=== PATIENT | male | born 1980 | race Caucasian/White ===

== ENCOUNTER 2018-11-09 17:50 | Emergency (ER) | payer BC ==
--- NOTE | 2018-11-09 19:29 | ER ---
Nurse's Notes [facility] Name: Del Barahona Age: 38 yrs Sex: Male : 1980 Arrival Date: 11/09/2018 Time: 17:53 Bed 28 Private MD: Unknown, Unknown Diagnosis: Abrasion, left great toe Presentation: 11/09 18:01 Presenting complaint: Patient states: right great toe injury happened today after sv kicking a speaker. Transition of care: patient was not received from another setting of care. Onset of symptoms was November 09, 2018. Risk Assessment: Do you want to hurt yourself or someone else? Patient reports no desire to harm self or others. Initial Sepsis Screen: Does the patient meet any 2 criteria? No. Patient's initial sepsis screen is negative. Does the patient have a suspected source of infection? No. Patient's initial sepsis screen is negative. Care prior to arrival: None. 18:01 Method Of Arrival: Ambulatory sv 18:01 Acuity: CHARO 3 sv Triage Assessment: 18:01 General: Appears in no apparent distress. uncomfortable, well developed, Behavior is sv calm, cooperative, appropriate for age. Pain: Complains of pain in right first toe Pain currently is 5 out of 10 on a pain scale. Neuro: Level of Consciousness is awake, alert, obeys commands, Oriented to person, place, time, situation, Gait is steady. Respiratory: Respiratory effort is even, unlabored, Respiratory pattern is regular, symmetrical. Historical: - Allergies: 18:01 No Known Allergies; sv - PMHx: 18:01 None; sv - PSHx: 18:01 None; sv - Immunization history:: Adult Immunizations up to date. - Social history:: Smoking status: Patient uses tobacco products, chewing tobacco, Patient uses Patient/guardian denies using alcohol, street drugs, The patient lives alone, with family. - Ebola Screening: : No symptoms or risks identified at this time. - Family history:: not pertinent. Screenin:28 Abuse screen: Denies threats or abuse. Denies injuries from another. Nutritional mg2 screening: No deficits noted. Tuberculosis screening: No symptoms or risk factors identified. Fall Risk None identified. Assessment: 18:28 General: Appears in no apparent distress. comfortable, Behavior is calm, cooperative. mg2 Neuro: Level of Consciousness is awake, alert, obeys commands, Oriented to person, place, time, situation. Cardiovascular: Capillary refill < 3 seconds Patient's skin is warm and dry. Respiratory: Airway is patent Respiratory effort is even, unlabored, Respiratory pattern is regular, symmetrical. GI: No signs and/or symptoms were reported involving the gastrointestinal system. : No signs and/or symptoms were reported regarding the genitourinary system. 19:12 Pain: Complains of pain in right big toe Pain does not radiate. Pain currently is 3 out mg2 of 10 on a pain scale. Quality of pain is described as aching, Pain began gradually, Is intermittent. EENT: No signs and/or symptoms were reported regarding the EENT system. Derm: Skin is intact, is healthy with good turgor, Skin is pink, warm \T\ dry. normal. Musculoskeletal: Circulation, motion, and sensation intact. Capillary refill < 3 seconds. Vital Signs: 18:02 BP 155 / 100; Pulse 103; Resp 18; Temp 98.9; Pulse Ox 98% ; Weight 86.18 kg; Height 5 sv ft. 10 in. (177.80 cm); Pain 5/10; 19:41 BP 140 / 70; Pulse 90; Resp 18; Temp 98.8; Pulse Ox 100% on R/A; Pain 2/10; mg2 18:02 Body Mass Index 27.26 (86.18 kg, 177.80 cm) sv ED Course: 17:53 Patient arrived in ED. ag5 17:54 Unknown, Unknown is Private Physician. ag5 18:01 Triage completed. sv 18:02 Arm band placed on. sv 18:05 Jeff Thornton, HEATHER is Primary Nurse. mg2 18:08 Edgar Lassiter MD is Attending Physician. ma2 18:48 Foot Right 3 View XRAY In Process Unspecified. EDMS 19:11 Patient has correct armband on for positive identification. Door closed. mg2 19:11 No provider procedures requiring assistance completed. Patient did not have IV access mg2 during this emergency room visit. Administered Medications: No medications were administered Outcome: 19:29 Discharge ordered by . ma2 19:41 Discharged to home ambulatory. mg2 19:41 Condition: stable 19:41 Discharge instructions given to patient, Instructed on discharge instructions, follow up and referral plans. medication usage, Demonstrated understanding of instructions, follow-up care, medications, Prescriptions given X 1. 19:41 Patient left the ED. mg2 Signatures: Dispatcher [employer] Elizabeth Rivas RN RN Edgar Lassiter MD MD ma2 Jeff Thornton RN RN mg2 Shelly Peterson ag5 Corrections: (The following items were deleted from the chart) 18:02 18:01 Acuity: CHARO 4 [facility] 19:13 18:28 : No signs and/or symptoms were reported regarding the genitourinary system. mg2mg2
--- NOTE | 2018-11-09 19:30 | EDPHYS ---
Physician Documentation [facility] Name: Del Barahona Age: 38 yrs Sex: Male : 1980 Arrival Date: 11/09/2018 Time: 17:53 Bed 28 Private MD: Unknown, Unknown ED Physician Edgar Lassiter HPI: 11/09 18:34 This 38 yrs old Male presents to ER via Ambulatory with complaints of Toe ma2 Injury. 18:34 The patient presents with an injury. The complaints affect the left foot. Context: The ma2 problem was sustained at work. Associated signs and symptoms: Pertinent negatives: fever, numbness, tingling, vomiting. Severity of symptoms: At their worst the symptoms were mild, in the emergency department the symptoms are unchanged. The patient has not experienced similar symptoms in the past. Historical: - Allergies: 18:01 No Known Allergies; sv - PMHx: 18:01 None; sv - PSHx: 18:01 None; sv - Immunization history:: Adult Immunizations up to date. - Social history:: Smoking status: Patient uses tobacco products, chewing tobacco, Patient uses Patient/guardian denies using alcohol, street drugs, The patient lives alone, with family. - Ebola Screening: : No symptoms or risks identified at this time. - Family history:: not pertinent. ROS: 18:34 MS/extremity: Positive for decreased range of motion, pain, swelling, Negative for ma2 abrasion, warmth. 18:34 Constitutional: Negative for fever, chills, and weight loss, Neck: Negative for injury, pain, and swelling. 18:34 All other systems are negative. Exam: 18:34 Constitutional: This is a well developed, well nourished patient who is awake, alert, ma2 and in no acute distress. Chest/axilla: Normal chest wall appearance and motion. Nontender with no deformity. No lesions are appreciated. Cardiovascular: Regular rate and rhythm with a normal S1 and S2. No gallops, murmurs, or rubs. Normal PMI, no JVD. No pulse deficits. Respiratory: Lungs have equal breath sounds bilaterally, clear to auscultation and percussion. No rales, rhonchi or wheezes noted. No increased work of breathing, no retractions or nasal flaring. Abdomen/GI: Soft, non-tender, with normal bowel sounds. No distension or tympany. No guarding or rebound. No evidence of tenderness throughout. Skin: Warm, dry with normal turgor. Normal color with no rashes, no lesions, and no evidence of cellulitis. Neuro: Awake and alert, GCS 15, oriented to person, place, time, and situation. Cranial nerves II-XII grossly intact. Motor strength 5/5 in all extremities. Sensory grossly intact. Cerebellar exam normal. Normal gait. 18:34 Musculoskeletal/extremity: Extremities: left great toe with swelling and tenderness , Circulation is intact in all extremities. Vital Signs: 18:02 BP 155 / 100; Pulse 103; Resp 18; Temp 98.9; Pulse Ox 98% ; Weight 86.18 kg; Height 5 sv ft. 10 in. (177.80 cm); Pain 5/10; 19:41 BP 140 / 70; Pulse 90; Resp 18; Temp 98.8; Pulse Ox 100% on R/A; Pain 2/10; mg2 18:02 Body Mass Index 27.26 (86.18 kg, 177.80 cm) sv MDM: 18:08 Patient medically screened. ma2 18:34 Differential diagnosis: fracture, sprain, penetrating trauma, arthritis. Data reviewed: ma2 vital signs, nurses notes. Counseling: I had a detailed discussion with the patient and/or guardian regarding: the historical points, exam findings, and any diagnostic results supporting the discharge/admit diagnosis, the presence of at least one elevated blood pressure reading (>120/80) during this emergency department visit, the need for outpatient follow up. Response to treatment: the patient's symptoms have markedly improved after treatment. 11/09 18:28 Order name: Foot Right 3 View XRAY ma2 Administered Medications: No medications were administered Disposition: 11/09/18 19:29 Discharged to Home. Impression: Abrasion, left great toe. - Condition is Stable. - Discharge Instructions: Foot Sprain. - Prescriptions for Tylenol- Codeine #3 300-30 mg Oral Tablet - take 2 tablet by ORAL route every 6 hours As needed; 30 tablet. - Medication Reconciliation Form, Thank You Letter, Antibiotic Education, Prescription Opioid Use form. - Follow up: Private Physician; When: Tomorrow; Reason: Continuance of care. Signatures: Dispatcher [employer] EDLudwin Calvilloie, RN RN sv Edgar Lassiter MD MD ma2 Jeff Thornton RN RN mg2 Corrections: (The following items were deleted from the chart) 19:41 19:29 11/09/2018 19:29 Discharged to Home. Impression: Abrasion, left great toe. mg2 Condition is Stable. Discharge Instructions: Foot Sprain. Prescriptions for Tylenol-Codeine #3 300-30 mg Oral Tablet - take 2 tablet by ORAL route every 6 hours As needed; 30 tablet. and Forms are Medication Reconciliation Form, Thank You Letter, Antibiotic Education, Prescription Opioid Use. Follow up: Private Physician; When: Tomorrow; Reason: Continuance of care. ma2
--- NOTE | 2018-11-09 20:06 | RAD REPORT ---
EXAM DESCRIPTION: RAD - Foot Right 3 View - 11/09/2018 6:51 pm CLINICAL HISTORY: Foot pain, trauma to the right first toe COMPARISON: None. FINDINGS: Fractures present involving the first toe proximal phalanx. No distraction or angulation d eformity. The first MTP joint and the first IP joint are intact. There is buckling along the articula r surface of the first proximal phalanx. This creates lateral angulation of the distal phalanx. No other bone or joint acute finding. No air or foreign body in the soft tissues. IMPRESSION: Right first toe proximal phalanx fracture as detailed.
== END 2018-11-09 19:41 | disposition home or self-care (01) ==
LOC: ER 17:50
DX: S90.412A Abrasion, left great toe, initial encounter (principal); X58.XXXA Exposure to other specified factors, initial encounter; Y93.9 Activity, unspecified; Y92.89 Other specified places as the place of occurrence of the external cause; Y99.8 Other external cause status; Z72.0 Tobacco use
CPT/HCPCS: 99283